=== PATIENT | female | born 1970 | race Caucasian/White ===

== ENCOUNTER 2017-10-25 18:45 | Observation (INO) | payer BC, OTHER ==
[~2017-10-25] VITALS: Ht 170.2 cm; Wt 126.4 kg
[~2017-10-25 18:45] MED LIST: BNT10 PO; CIPR-255 PO; LISI-726 PO; ONDA4TAB9 PO; OXYC-57 PO; RANITAB33 PO
[2017-10-25] MEDS ORDERED: ASPIRIN 81 MG CHEW PO STA (19:06)
[2017-10-25] MEDS ORDERED: NITROGLYCERIN 0.4 MG SL PER TAB CHARGE SL PRN ×2 (19:15→21:15)
[2017-10-25] MEDS ORDERED: DVN/160 PO (19:46)
[2017-10-25] MEDS ORDERED: HYDR25TA4 PO (19:46)
[2017-10-25 19:55] LABS: BASO % 0.3 %; BASO ABS # 0.03 K/uL (0-0.2); EOS % 3.3 %; HEMOGLOBIN 15.4 g/dL (12.0-16.0); IG# 0.02 K/uL (0.00-0.02); LYMPH % 41.3 %; LYMPH ABS # 3.77 K/uL (1.2-3.4); MEAN CELL VOLUME 87.4 fL (80-100); MEAN CORPUSCULAR HEMOGLOBIN 29.9 pg (25-34); MEAN CORPUSCULAR HGB CONC 34.2 g/dl (32-36); MEAN PLATELET VOLUME 10.3 fL (7.4-10.4); MONO % 7.7 %; NEUT % 47.2 %; NEUT ABS # 4.31 K/uL (1.4-6.5); PLATELET COUNT 323 K/uL (130-400); RED CELL DISTRIBUTION WIDTH CV 13.3 % (11.5-14.5); RED CELL DISTRIBUTION WIDTH SD 42.7 fL (36.4-46.3); WHITE BLOOD COUNT 9.13 K/uL (4.8-10.8)
[2017-10-25 20:14] LABS: BLOOD UREA NITROGEN 15 mg/dl (7-18); CALCIUM 9.5 mg/dl (8.5-10.1); CARBON DIOXIDE 27 mmol/L (21-32); CREATININE 0.93 mg/dl (0.60-1.20); GLUCOSE 103 mg/dl (70-99); POTASSIUM 3.4 mmol/L (3.5-5.1); SODIUM 138 mmol/L (136-145)
--- NOTE | 2017-10-25 20:14 | DIAGNOSTIC IMAGING REPORT ---
CHEST ONE VIEW PORTABLE HISTORY: Atypical Chest Pain COMPARISON: Chest 06/20/2015. FINDINGS: The lungs are clear. Cardiac silhouette is normal in size. No pleural effusions. No pneumothorax. There are low lung volumes, unchanged. IMPRESSION: No significant change compared to the prior study. No acute process. Electronically signed by: Wilfrido Medina M.D. 10/25/2017 8:13 PM Dictated Date/Time: 10/25/2017 8:12 PM
[2017-10-25 20:21] LABS: CKMB 3.1 ng/ml (0.5-3.6)
[2017-10-25 21:11] VITALS: O2SAT 95
[2017-10-25] MEDS ORDERED: RANI1TAB75 PO (21:23)
--- NOTE | 2017-10-25 21:27 | History and Physical ---
History & Physical Date & Time of Service: Oct 25, 2017 at 21:25 Chief Complaint: High Bp, Chest Pain Primary Care Physician: Talha Holley M.D. History of Present Illness Source: patient, clinic records, hospital records Patient is a 47-year-old female with a PMH of HTN, HLD and GERD who presents with intermittent chest pressure 5 days. Patient describes discomfort as a centrally located pressure that is nonradiating with associated diaphoresis and nausea. Chest pressure is made worse when she lies down and it is improved when she is sitting up or walking around. Pain is not made worse with exertion. No shortness of breath. Experiences pain for "a few seconds" and then it will resolve spontaneously. Did not take any medication at home over the weekend but was given 1 dose of sublingual nitroglycerin in the ED and chest pain has resolved. Three weeks ago, patient's lisinopril was discontinued due to cough and patient was started on 160mg of valsartan. Blood pressure has reportedly been elevated based on home readings with SBP up to 170. On Tuesday, patient endorsed right- sided headache with associated blurry vision, nausea and an episode of vomiting. Was started on hydrochlorothiazide 25 mg by PCP in addition to Valsartan and is no longer experiencing headache, nausea or vomiting. Denies any personal history of CA or DVT/PE. Did undergo a cardiac workup in 2016 for atypical chest pain and resulting dobutamine stress test was normal. Echo showed EF of 60-64% with some septal motion abnormality but otherwise normal. + family history of CA, with father passing away from heart disease by age 55. Does endorse recent personal stress over housing issues and work. Denies fever, chills, headache, lightheadedness, palpitations, SOB, abdominal pain, nausea, vomiting, bowel or bladder changes or LE swelling. Non-smoker. Past Medical/Surgical History Medical Problems: (1) Ankylosing spondylitis Status: Chronic (2) Bile leak, postoperative Status: Resolved (3) HLD (hyperlipidemia) Status: Chronic (4) HTN (hypertension) Status: Chronic Surgical Problems: (1) S/P cholecystectomy Status: Resolved Family History FHx: heart disease Social History Smoking Status: Never Smoker Alcohol Use: none Drug Use: none Marital Status: Housing status: lives with significant other Occupational Status: employed Immunizations History of Influenza Vaccine: Yes Influenza Vaccine Date: Jan 02, 2015 Allergies Coded Allergies: Cephalexin (Unverified Allergy, Unknown, UNKNOWN, 10/25/17) Oxytetracycline (Unverified Allergy, Unknown, UNKNOWN, 10/25/17) Polymyxin B (Unverified Allergy, Unknown, UNKNOWN, 10/25/17) Sulfa Antibiotics (Unverified Allergy, Unknown, UNKNOWN, 10/25/17) Morphine (Verified Adverse Reaction, Mild, rash, 10/25/17) Home Medications Scheduled Hydrochlorothiazide (Hctz), 25 MG PO DAILY Valsartan (Diovan), 160 MG PO DAILY Scheduled PRN Ranitidine HCl (Ranitidine 75), 1 TAB PO Q12 PRN for Dyspepsia Review of Systems Ten systems reviewed and negative except as noted in the HPI. Physical Exam Vital Signs Date Time Temp Pulse Resp B/P (MAP) Pulse Ox O2 Delivery O2 Flow Rate FiO2 10/25/17 21:11 83 16 130/85 95 Room Air 10/25/17 20:26 63 10/25/17 20:20 98 Room Air 10/25/17 19:45 69 16 125/86 96 Room Air 10/25/17 18:47 36.8 87 18 161/95 94 Room Air General Appearance: WD/WN, no apparent distress, + obese Head: normocephalic, atraumatic Eyes: normal inspection, PERRL, sclerae normal ENT: normal ENT inspection, hearing grossly normal, pharynx normal Neck: supple, thyroid normal, trachea midline Respiratory/Chest: chest non-tender, lungs clear, normal breath sounds, no respiratory distress, no accessory muscle use Cardiovascular: regular rate, rhythm, normal peripheral pulses Abdomen/GI: non tender, soft, no organomegaly Extremities/Musculoskelatal: normal inspection, no calf tenderness, no pedal edema 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, no motor/sensory deficits, alert, normal mood/affect, oriented x 3 Skin: normal color, warm/dry Diagnostics Laboratory Results Results Past 24 Hours Test 10/25/17 19:39 10/25/17 21:17 Range/Units White Blood Count 9.13 4.8-10.8 K/uL Red Blood Count 5.15 4.2-5.4 M/uL Hemoglobin 15.4 12.0-16.0 g/dL Hematocrit 45.0 37-47 % Mean Corpuscular Volume 87.4 80-100 fL Mean Corpuscular Hemoglobin 29.9 25-34 pg Mean Corpuscular Hemoglobin Concent 34.2 32-36 g/dl Platelet Count 323 130-400 K/uL Mean Platelet Volume 10.3 7.4-10.4 fL Neutrophils (%) (Auto) 47.2 % Lymphocytes (%) (Auto) 41.3 % Monocytes (%) (Auto) 7.7 % Eosinophils (%) (Auto) 3.3 % Basophils (%) (Auto) 0.3 % Neutrophils # (Auto) 4.31 1.4-6.5 K/uL Lymphocytes # (Auto) 3.77 1.2-3.4 K/uL Monocytes # (Auto) 0.70 0.11-0.59 K/uL Eosinophils # (Auto) 0.30 0-0.5 K/uL Basophils # (Auto) 0.03 0-0.2 K/uL RDW Standard Deviation 42.7 36.4-46.3 fL RDW Coefficient of Variation 13.3 11.5-14.5 % Immature Granulocyte % (Auto) 0.2 % Immature Granulocyte # (Auto) 0.02 0.00-0.02 K/uL Erythrocyte Sedimentation Rate 10 0-21 mm/hr D-Dimer < 190 0-500 ug/L FEU Sodium Level 138 136-145 mmol/L Potassium Level 3.4 3.5-5.1 mmol/L Chloride Level 101 98-107 mmol/L Carbon Dioxide Level 27 21-32 mmol/L Anion Gap 10.0 3-11 mmol/L Blood Urea Nitrogen 15 7-18 mg/dl Creatinine 0.93 0.60-1.20 mg/dl Est Creatinine Clear Calc Drug Dose 105.9 ml/min Estimated GFR () 86.0 Estimated GFR (Non- 74.2 BUN/Creatinine Ratio 16.5 10-20 Random Glucose 103 70-99 mg/dl Calcium Level 9.5 8.5-10.1 mg/dl Total Creatine Kinase 289 26-192 U/L Creatine Kinase MB 3.1 0.5-3.6 ng/ml Creatine Kinase MB Ratio 1.1 0-3.0 Troponin I < 0.015 0-0.045 ng/ml C-Reactive Protein < 0.29 0-0.29 mg/dl Chemistry Specimen Hemolysis Diagnostic Radiology CXR: IMPRESSION: No significant change compared to the prior study. No acute process. EKG Normal sinus rhythm. Cannot rule out Anterior infarct , age undetermined. T wave inversions noted in III and aVF. Impression Assessment and Plan Patient is a 47-year-old female with a PMH of HTN, HLD and GERD who presents with intermittent chest pressure 5 days. Chest pain -H/o atypical chest pain in 2016. Dobutamine stress test negative for inducible ischemia -R/o ACS; risk factors include HTN, HLD, + family history of heart disease -EKG with more pronounced T wave inversion in lead III, new in aVF -Initial troponin negative -CXR without acute abnormality -Trend serial cardiac enzymes -Considered PE but d-dimer is negative -Check echo -Repeat EKG in am -Lipid panel, a1c labs pending -Consult cardiology -NPO after midnight in case of stress test in AM HTN -BP initially 161/95 -Decreased to 130/85 with sublingual ntg -Continue home valsartan, hctz HLD -Currently not on medication -Fasting lipid panel pending Headache -- resolved -Endorses headache with elevated BP a few days ago -No longer experiencing pain -No focal neuro deficits on exam -Consider CT head if pain recurs, new symptoms H/o cholecystectomy, post-op bile leak -No current abdominal pain -LFTs pending H/o GERD -Zantac PRN H/o Ankylosing spondylitis -Remote history -Denies any current symptoms DVT Ppx: SCDs Code status: FULL PCP: Leydi Dispo: Observation telemetry. Plan to return home once medically stable. Patient seen in collaboration with Dr. Sabillon. Please see addendum. Attending Note: Patient is a 47 yr female with PMH of HTN, HLP, GERD, Obesity, Family H/O Heart disease presents with history of atypical chest pain. Patient states she is in lot of stress lately. Her blood pressure medication was changed from lisinopril to losartan and HCTZ was added 2 weeks ago by her PCP for better BP control and leg edema. Please review HPI for complete details. Initial Troponin is Negative. EKG showed T wave changes in inferior leads. Last stress test in 2016 was negative. On exam patient is obese, no distress, Normal breath sounds, CTA, 1+ B/L edema. Patient is admitted in Telemetry for chest pain R/O ACS. ESR and EKG not suggestive of pericarditis. LFTs normal. Chest pain could also secondary to stress or uncontrolled BP. Cardiology was consulted for possible stress test given positive family history and risk factors. I personally reviewed the record. Patient is interviewed and examined at bedside. Patient's care is coordinated with Taina Carr PA-C. Please refer to the documentation above for details of patient's presentation and for discussion of other issues. Resuscitation Status VTE Prophylaxis Will order VTE Prophylaxis: Yes
[2017-10-25] MEDS ORDERED: RANITIDINE HCL 150 MG TAB PO PRN (21:30)
[2017-10-25] MEDS ORDERED: IV FLUIDS COMPLETED PRN (21:30)
[2017-10-25 21:40] LABS: ALBUMIN 4.2 gm/dl (3.4-5.0); TOTAL PROTEIN 7.7 gm/dl (6.4-8.2)
[2017-10-25 22:05] VITALS: BP 159/92; PULSE 74; TEMP 36.7; O2SAT 97
[2017-10-25 22:23] VITALS: BP 159/92; PULSE 74; TEMP 36.7; Ht 170.2 cm; Wt 126.4 kg
[2017-10-25] MEDS ORDERED: POTASSIUM CHLORIDE 10 MEQ TABCR PO STA (22:36)
[2017-10-26] VITALS (11 sets, daily range): BP systolic 104–151; BP diastolic 63–93; PULSE 51–99; TEMP 36.5–36.9; O2SAT 93–95
--- NOTE | 2017-10-26 01:03 | EMERGENCY ROOM VISIT NOTE ---
History Report prepared by Alanna: Jacqueline Kaufman Under the Supervision of: Dr. Bobby Parkinson D.O. First contact with patient: 18:51 Chief Complaint: CARDIAC ASSESSMENT Stated Complaint: HIGH BP, CHEST PAIN History of Present Illness The patient is a 47 year old female who presents to the Emergency Room with complaints of persistent chest discomfort beginning 4 days ago. She describes the pain as a heaviness that worsens when laying down. The patient notes the pain waxes and wanes in intensity, but is always there. She reports feeling fatigued and some mild SOB, that worsens when she is active. She notes the SOB began when she switched BP medications 2 weeks ago. The patient states she was experiencing coughing while taking 20 mg Lisinopril daily, and was put on 160 mg Valsartan instead. She reports her BP has been persistently elevated since this switch. The patient denies arm pain, jaw pain, weakness, numbness, pain with urination, or headache. She also denies swelling of calves, recent weight gain, recent trips, history of immobilization or recent surgery, prior history of DVT, hemoptysis, history of malignancy, history of smoking, or control/ estrogen use. The patient notes a history of HTN and high cholesterol. She denies smoking or a history of heart disease. The patient sees Dr. Holley as her PCP. Source of History: patient Onset: 4 days ago Position: chest Quality: other (heaviness, waxing and waning) Timing: other (persistent) Modifying Factors (Worsening): other (laying down) Associated Symptoms: + SOB (mild), No headache, No urinary symptoms, No weakness, No numbness Note: Associated symptom: elevated BP. Denies: arm pain, jaw pain. Review of Systems See HPI for pertinent positives & negatives. A total of 10 systems reviewed and were otherwise negative. Past Medical & Surgical Medical Problems: (1) Ankylosing spondylitis (2) Bile leak, postoperative (3) HLD (hyperlipidemia) (4) HTN (hypertension) Surgical Problems: (1) S/P cholecystectomy Family History FHx: heart disease Social History Smoking Status: Never Smoker Alcohol Use: none Drug Use: none Marital Status: Housing Status: lives with family Occupation Status: employed Current/Historical Medications Scheduled Hydrochlorothiazide (Hctz), 25 MG PO DAILY Valsartan (Diovan), 160 MG PO DAILY Scheduled PRN Ranitidine HCl (Ranitidine 75), 1 TAB PO Q12 PRN for Dyspepsia Allergies Coded Allergies: Cephalexin (Unverified Allergy, Unknown, UNKNOWN, 10/25/17) Oxytetracycline (Unverified Allergy, Unknown, UNKNOWN, 10/25/17) Polymyxin B (Unverified Allergy, Unknown, UNKNOWN, 10/25/17) Sulfa Antibiotics (Unverified Allergy, Unknown, UNKNOWN, 10/25/17) Morphine (Verified Adverse Reaction, Mild, rash, 10/25/17) Physical Exam Vital Signs Date Time Temp Pulse Resp B/P (MAP) Pulse Ox O2 Delivery O2 Flow Rate FiO2 10/25/17 21:11 83 16 130/85 95 Room Air 10/25/17 20:26 63 10/25/17 20:20 98 Room Air 10/25/17 19:45 69 16 125/86 96 Room Air 10/25/17 18:47 36.8 87 18 161/95 94 Room Air Physical Exam GENERAL: Sitting up in bed, alert, well appearing, well nourished, no distress, non-toxic, obese EYE EXAM: normal conjunctiva. OROPHARYNX: no exudate, no erythema, lips, buccal mucosa, and tongue normal and mucous membranes are moist NECK: supple, no nuchal rigidity, no adenopathy, non-tender LUNGS: Clear to auscultation. Normal chest wall mechanics HEART: no murmurs, S1 normal and S2 normal ABDOMEN: abdomen soft, non-tender, normo-active bowel sounds, no masses, no rebound or guarding. BACK: Back is symmetrical on inspection and there is no deformity, no midline tenderness, no CVA tenderness. SKIN: no rashes and no bruising UPPER EXTREMITIES: upper extremities are grossly normal. radial pulses equal bilaterally LOWER EXTREMITIES: No pitting edema. Calves are equal bilaterally NEURO EXAM: Normal sensorium, cranial nerves II-XII grossly intact, normal speech, no gross weakness of arms, no gross weakness of legs. Medical Decision & Procedures ER Provider Diagnostic Interpretation: Radiology results as stated below per my review and the radiologist's interpretation: CHEST ONE VIEW PORTABLE HISTORY: Atypical Chest Pain COMPARISON: Chest 06/20/2015. FINDINGS: The lungs are clear. Cardiac silhouette is normal in size. No pleural effusions. No pneumothorax. There are low lung volumes, unchanged. IMPRESSION: No significant change compared to the prior study. No acute process. Electronically signed by: Wilfrido Medina M.D. 10/25/2017 8:13 PM Dictated Date/Time: 10/25/2017 8:12 PM Laboratory Results 10/25/17 19:39 Red Blood Count 5.15, Mean Corpuscular Volume 87.4, Mean Corpuscular Hemoglobin 29.9, Mean Corpuscular Hemoglobin Concent 34.2, Mean Platelet Volume 10.3, Neutrophils (%) (Auto) 47.2, Lymphocytes (%) (Auto) 41.3, Monocytes (%) (Auto) 7.7, Eosinophils (%) (Auto) 3.3, Basophils (%) (Auto) 0.3, Neutrophils # (Auto) 4.31, Lymphocytes # (Auto) 3.77, Monocytes # (Auto) 0.70, Eosinophils # (Auto) 0.30, Basophils # (Auto) 0.03 10/25/17 19:39 Test 10/25/17 19:39 White Blood Count 9.13 K/uL (4.8-10.8) Red Blood Count 5.15 M/uL (4.2-5.4) Hemoglobin 15.4 g/dL (12.0-16.0) Hematocrit 45.0 % (37-47) Mean Corpuscular Volume 87.4 fL (80-100) Mean Corpuscular Hemoglobin 29.9 pg (25-34) Mean Corpuscular Hemoglobin Concent 34.2 g/dl (32-36) Platelet Count 323 K/uL (130-400) Mean Platelet Volume 10.3 fL (7.4-10.4) Neutrophils (%) (Auto) 47.2 % Lymphocytes (%) (Auto) 41.3 % Monocytes (%) (Auto) 7.7 % Eosinophils (%) (Auto) 3.3 % Basophils (%) (Auto) 0.3 % Neutrophils # (Auto) 4.31 K/uL (1.4-6.5) Lymphocytes # (Auto) 3.77 K/uL (1.2-3.4) Monocytes # (Auto) 0.70 K/uL (0.11-0.59) Eosinophils # (Auto) 0.30 K/uL (0-0.5) Basophils # (Auto) 0.03 K/uL (0-0.2) RDW Standard Deviation 42.7 fL (36.4-46.3) RDW Coefficient of Variation 13.3 % (11.5-14.5) Immature Granulocyte % (Auto) 0.2 % Immature Granulocyte # (Auto) 0.02 K/uL (0.00-0.02) Erythrocyte Sedimentation Rate 10 mm/hr (0-21) D-Dimer < 190 ug/L FEU (0-500) Anion Gap 10.0 mmol/L (3-11) Est Creatinine Clear Calc Drug Dose 105.9 ml/min Estimated GFR () 86.0 Estimated GFR (Non- 74.2 BUN/Creatinine Ratio 16.5 (10-20) Calcium Level 9.5 mg/dl (8.5-10.1) Magnesium Level 2.1 mg/dl (1.8-2.4) Total Bilirubin 0.6 mg/dl (0.2-1) Direct Bilirubin 0.1 mg/dl (0-0.2) Aspartate Amino Transf (AST/SGOT) 25 U/L (15-37) Alanine Aminotransferase (ALT/SGPT) 35 U/L (12-78) Alkaline Phosphatase 85 U/L (45-117) Total Creatine Kinase 289 U/L (26-192) Creatine Kinase MB 3.1 ng/ml (0.5-3.6) Creatine Kinase MB Ratio 1.1 (0-3.0) Troponin I < 0.015 ng/ml (0-0.045) C-Reactive Protein < 0.29 mg/dl (0-0.29) Total Protein 7.7 gm/dl (6.4-8.2) Albumin 4.2 gm/dl (3.4-5.0) Chemistry Specimen Hemolysis Medications Administered Medications (Trade) Dose Ordered Sig/Neeta Route Start Time Stop Time Status Last Admin Dose Admin Aspirin (Aspirin Chew) 324 mg NOW STAT PO 10/25/17 19:06 10/25/17 19:07 DC 10/25/17 19:48 324 MG ECG Per My Interpretation Indication: chest pain Rate (beats per minute): 72 Rhythm: normal sinus Findings: T-wave inversion (Inferior), other (normal axis. T-wave flattening in anterior lateral) Comparison ECG Date: 06/20/15 Change: When compared to 06/20/15: T-wave inversion and T-wave flattening are new. ED Course ED COURSE: Vital signs were reviewed and showed situational hypertension. The patients medical record was reviewed The above diagnostic studies were performed and reviewed. ED treatments and interventions as stated above. 1857: The patient was evaluated in room B7. A complete history and physical examination was performed. 1905: Ordered Aspirin 324 mg PO. 2025: Upon reevaluation, the patient refused nitroglycerin and noted she is only experiencing chest pain on exertion, not constantly as originally stated. I discussed my findings with the patient and she understands and agrees with the treatment plan. 2028: I reviewed the patient's case with Taina Carr PA-C, [facility] hospitalist. She will evaluate the patient for further management. Based on the patients age, coexisting illnesses, exam and lab findings the decision to treat as an inpatient was made. The patient remained stable while under my care. The patient will be evaluated for further management. Medical Decision Differential diagnoses includes but is not limited to acute coronary syndrome, myocardial infarction, pericarditis, pulmonary embolus, aortic dissection, pneumonia, pneumothorax, musculoskeletal, shingles, esophageal. Patient is a 47-year-old female with a family history of heart disease, personal history of hypertension and high cholesterol who presents the ER for exertional chest pain and some shortness of breath. No other exacerbating or remitting factors. EKG shows T-wave flattening in the lateral leads with new flipped T waves in the inferior. CBC along with BMP and troponin was negative. No chest pain while in the ER. She was given aspirin. D-dimer was negative. Chest x-ray unremarkable. With the subtle T-wave changes did discuss with internal medicine for observation for cardiac rule out. Medication Reconcilliation Current Medication List: was personally reviewed by me Blood Pressure Screening Patient's blood pressure: Elevated blood pressure Blood pressure disposition: Elevated BP felt to be situational Consults Time Called: 2025 Consulting Physician: Taina Carr PA-C, [facility] hospitalist Returned Call: 2028 I reviewed the patient's case with Taina Carr PA-C, [facility] hospitalist. She will evaluate the patient for further management. Impression Primary Impression: Precordial chest pain Additional Impression: Acute electrocardiogram changes Scribe Attestation The scribe's documentation has been prepared under my direction and personally reviewed by me in its entirety. I confirm that the note above accurately reflects all work, treatment, procedures, and medical decision making performed by me. Departure Information Dispostion Being Evaluated By Hospitalist Referrals Talha Holley M.D. (PCP) Patient Instructions My [facility] Problem Qualifiers
[2017-10-26 07:31] LABS: HEMATOCRIT 42.8 % (37-47); HEMOGLOBIN 14.6 g/dL (12.0-16.0); MEAN CELL VOLUME 87.7 fL (80-100); MEAN CORPUSCULAR HEMOGLOBIN 29.9 pg (25-34); MEAN CORPUSCULAR HGB CONC 34.1 g/dl (32-36); MEAN PLATELET VOLUME 9.8 fL (7.4-10.4); PLATELET COUNT 277 K/uL (130-400); RED CELL DISTRIBUTION WIDTH CV 13.2 % (11.5-14.5); RED CELL DISTRIBUTION WIDTH SD 42.6 fL (36.4-46.3); WHITE BLOOD COUNT 7.07 K/uL (4.8-10.8)
[2017-10-26] MEDS ORDERED: NURSING VERBAL MED ORDER ONE (07:45)
[2017-10-26] MEDS ORDERED: ACETAMINOPHEN 500 MG TAB PO PRN (08:00)
[2017-10-26 08:13] LABS: CALCIUM 8.5 mg/dl (8.5-10.1); CREATININE 0.83 mg/dl (0.60-1.20); POTASSIUM 3.5 mmol/L (3.5-5.1)
[2017-10-26] MEDS ORDERED: VALSARTAN 80 MG TAB PO SCH (09:00)
[2017-10-26] MEDS ORDERED: ASPIRIN 81 MG ECTAB PO SCH (09:00)
[2017-10-26] MEDS ORDERED: HYDROCHLOROTHIAZIDE 25 MG TAB PO SCH (09:00)
[2017-10-26] MEDS ORDERED: PERFLUTREN LIPID MICROSPHERE (DEFINITY) IV ONE (09:06)
[2017-10-26] MEDS ORDERED: ATORVASTATIN 40 MG TAB PO ONE (09:39)
--- NOTE | 2017-10-26 11:39 | CARDIOLOGY CONSULTATION ---
DATE OF CONSULTATION: 10/26/2017 REASON FOR CONSULTATION: Chest pain, abnormal ECG. HISTORY OF PRESENT ILLNESS: Ms. Ewing is a 47-year-old female who presented to the Emergency Department with waxing and waning chest pain over four-day period. Her initial ECG demonstrates sinus rhythm with inferior T-wave abnormality as well as a non-specific T-wave abnormality in lateral leads. She describes chest heaviness and tightness, which occurs at rest and seems to be worse with position. She does not exercise regularly. She is overweight. For her work in general she walks regularly; however, denies any exertional complaints. Symptoms began approximately four days ago. Her cardiac enzymes are not significantly elevated and are undetectable at this time. Her resting 2D transthoracic echocardiogram demonstrates an anterior septal wall motion abnormality, which was not noted on prior studies. Currently, she is pain free. Denies orthopnea or PND. Intermittent edema is noted. Offers no other complaints at this time. REVIEW OF SYSTEMS: The pertinent positive noted above. Comprehensive 10-system review is otherwise negative. PAST MEDICAL HISTORY: Hypertension. PAST SURGICAL HISTORY: 1. Hysterectomy. 2. Cholecystectomy. SOCIAL HISTORY: Lifelong nonsmoker. She works for a [employer], which cares for disabled people. FAMILY HISTORY: Father with coronary disease in his early 40s. Father at age 55 from myocardial infarction. ALLERGIES: CEPHALEXIN, MORPHINE, OXYTETRACYCLINE, POLYMYXIN B, SULFA ANTIBIOTICS. OUTPATIENT MEDICATIONS: 1. Hydrochlorothiazide 25 mg daily. 2. Valsartan 160 mg daily. 3. Ranitidine 75 mg twice daily as needed. LABORATORY DATA: Troponins are negative x3 sets. White blood cell count is 7.07, hemoglobin is 14.6, platelet count is 277. D-dimer is less than 190. Triglycerides 175, total cholesterol 288, her LDL is 214, HDL is 39, TSH 1.890. Sed rate is 10, which is within normal limits. Chest x-ray on admission demonstrates no evidence of pulmonary edema. PHYSICAL EXAMINATION: VITAL SIGNS: Temperature is 36.7 degrees centigrade, pulse is 75 beats per minute and regular, respiratory rate 20 breaths per minute, blood pressure 122/80, SaO2 is 95% on room air. GENERAL: NAD, awake, alert and oriented x3. HEENT: Her mucous membranes are moist. No scleral icterus. Conjunctivae pink. NECK: Supple without JVD or HJR. No carotid bruit. HEART: Regular with normal S1, S2. There is no murmur, rub or gallop. LUNGS: Clear without rales, rhonchi or wheeze. ABDOMEN: Soft, nontender, obese. No rebound or guarding. Normal bowel sounds. EXTREMITIES: Warm and dry without clubbing, cyanosis or edema. The posterior tibial pulses are 2/4 bilaterally. NEUROLOGIC: Demonstrates no focal deficit. FINAL IMPRESSION: 1. A 47-year-old female with family history of premature coronary artery disease and marked dyslipidemia, likely familial dyslipidemia as noted above. She presents with intermittent waxing and waning chest tightness, which is somewhat atypical for angina with transient T-wave abnormality on ECG. Resting 2D transthoracic echocardiogram demonstrates a new anteroseptal wall motion abnormality. Findings are concerning for unstable angina/possible ACS. 2. Hypertension - borderline control. 3. Dyslipidemia - untreated. 4. Family history of premature coronary artery disease. PLAN AND RECOMMENDATIONS: I had a long discussion with the patient regarding her abnormal echocardiographic findings in conjunction with her risk factors and family history noted above. We discussed further ischemic evaluation with non-invasive stress test versus invasive cardiac catheterization with coronary angiography. The risks, benefits and alternatives to cardiac catheterization were discussed at length. The patient is agreeable. Continue aspirin at this time. Statin therapy will be added, atorvastatin 80 mg daily. Further recommendations pending result of catheterization. Thank you for allowing me to participate in the care of your patient. MIKE
--- NOTE | 2017-10-26 12:48 | Progress Note ---
Internal Med Progress Note Date of Service: Oct 26, 2017. Provider Documentation: SUBJECTIVE: The patient was seen and examined in telemetry unit She is 47-year-old white female morbidly obese with history of uncontrolled hypertension , high cholesterol and a strong family history of heart disease Was admitted yesterday with them chest pressure/pain with and without exertion She feels a lot better today and she has been ruled out for ACS She will have cardiac cath today for better understanding of her coronaries OBJECTIVE: Vital Signs-as noted below Exam: General-no apparent distress at rest Eyes-normal ENT-normal Neck-supple Lungs-clear to auscultate bilaterally Heart-regular Abdomen-benign Extremities-trace edema bilaterally Neuro-alert, awake and oriented 3 No focal neuro deficit Lab data as noted below. ASSESSMENT & PLAN: Patient is a 47-year-old female with a PMH of HTN, HLD and GERD who presents with intermittent chest pressure 5 days. Atypical chest pain/angina equivalent -H/o atypical chest pain in 2016. Dobutamine stress test negative for inducible ischemia -R/o ACS; risk factors include HTN, HLD, + family history of heart disease -Initial and serial troponins were negative and without any significant EKG abnormality -CXR without acute abnormality -Doubt any PE as d-dimer is negative -Lipid panel-high cholesterol of 288 -Consult cardiology-appreciate input -Going to cardiac cath today;;MILD NON-OBSTRUCTIVE CORONARIES Discussed with the mining analyst Discharge home today HTN -BP initially 161/95 -Decreased to 130/85 with sublingual ntg -Continue home valsartan, hctz -Blood pressure seems to be controlled HLD -Currently not on medication -Fasting lipid panel pending-has high cholesterol -We will put her on Lipitor Headache -- resolved -Endorses headache with elevated BP a few days ago -No longer experiencing pain -No focal neuro deficits on exam -Consider CT head if pain recurs, new symptoms H/o cholecystectomy, post-op bile leak -No current abdominal pain -LFTs pending H/o GERD -Zantac PRN H/o Ankylosing spondylitis -Remote history -Denies any current symptoms Morbid obesity Advised to reduce weight DVT Ppx: SCDs Code status: FULL PCP: Leydi Dispo: Observation telemetry. Plan to return home once medically stable. Discharge after cardiac cath if negative and no intervention is undertaken Vital Signs: Date Time Temp Pulse Resp B/P (MAP) Pulse Ox O2 Delivery O2 Flow Rate FiO2 10/26/17 14:15 36.9 65 20 128/81 (97) 94 Room Air 10/26/17 13:55 18 103/81 (88) 99 Room Air 10/26/17 13:50 16 124/77 (93) 99 Room Air 10/26/17 13:45 16 121/75 (90) 98 Room Air 10/26/17 12:09 36.6 78 18 136/91 (106) 93 Room Air 10/26/17 08:00 Room Air 10/26/17 07:00 36.7 99 20 122/80 (94) 95 Room Air 10/26/17 04:24 36.5 51 18 104/63 (77) 93 Room Air 10/25/17 23:30 Room Air 10/25/17 22:23 36.7 74 18 159/92 Room Air 10/25/17 22:05 36.7 74 18 159/92 (114) 97 Room Air 10/25/17 21:11 83 16 130/85 95 Room Air 10/25/17 20:26 63 10/25/17 20:20 98 Room Air 10/25/17 19:45 69 16 125/86 96 Room Air 10/25/17 18:47 36.8 87 18 161/95 94 Room Air Lab Results: Results Past 24 Hours Test 10/25/17 19:39 10/26/17 01:49 10/26/17 07:22 10/26/17 12:25 Range/Units White Blood Count 9.13 7.07 4.8-10.8 K/uL Red Blood Count 5.15 4.88 4.2-5.4 M/uL Hemoglobin 15.4 14.6 12.0-16.0 g/dL Hematocrit 45.0 42.8 37-47 % Mean Corpuscular Volume 87.4 87.7 80-100 fL Mean Corpuscular Hemoglobin 29.9 29.9 25-34 pg Mean Corpuscular Hemoglobin Concent 34.2 34.1 32-36 g/dl Platelet Count 323 277 130-400 K/uL Mean Platelet Volume 10.3 9.8 7.4-10.4 fL Neutrophils (%) (Auto) 47.2 % Lymphocytes (%) (Auto) 41.3 % Monocytes (%) (Auto) 7.7 % Eosinophils (%) (Auto) 3.3 % Basophils (%) (Auto) 0.3 % Neutrophils # (Auto) 4.31 1.4-6.5 K/uL Lymphocytes # (Auto) 3.77 1.2-3.4 K/uL Monocytes # (Auto) 0.70 0.11-0.59 K/uL Eosinophils # (Auto) 0.30 0-0.5 K/uL Basophils # (Auto) 0.03 0-0.2 K/uL RDW Standard Deviation 42.7 42.6 36.4-46.3 fL RDW Coefficient of Variation 13.3 13.2 11.5-14.5 % Immature Granulocyte % (Auto) 0.2 % Immature Granulocyte # (Auto) 0.02 0.00-0.02 K/uL Erythrocyte Sedimentation Rate 10 0-21 mm/hr D-Dimer < 190 0-500 ug/L FEU Sodium Level 138 139 136-145 mmol/L Potassium Level 3.4 3.5 3.5-5.1 mmol/L Chloride Level 101 105 98-107 mmol/L Carbon Dioxide Level 27 26 21-32 mmol/L Anion Gap 10.0 8.0 3-11 mmol/L Blood Urea Nitrogen 15 14 7-18 mg/dl Creatinine 0.93 0.83 0.60-1.20 mg/dl Est Creatinine Clear Calc Drug Dose 105.9 118.3 ml/min Estimated GFR () 86.0 98.7 Estimated GFR (Non- 74.2 85.2 BUN/Creatinine Ratio 16.5 16.8 10-20 Random Glucose 103 114 70-99 mg/dl Calcium Level 9.5 8.5 8.5-10.1 mg/dl Magnesium Level 2.1 1.8-2.4 mg/dl Total Bilirubin 0.6 0.2-1 mg/dl Direct Bilirubin 0.1 0-0.2 mg/dl Aspartate Amino Transf (AST/SGOT) 25 15-37 U/L Alanine Aminotransferase (ALT/SGPT) 35 12-78 U/L Alkaline Phosphatase 85 45-117 U/L Total Creatine Kinase 289 26-192 U/L Creatine Kinase MB 3.1 0.5-3.6 ng/ml Creatine Kinase MB Ratio 1.1 0-3.0 Troponin I < 0.015 < 0.015 < 0.015 0-0.045 ng/ml C-Reactive Protein < 0.29 0-0.29 mg/dl Total Protein 7.7 6.4-8.2 gm/dl Albumin 4.2 3.4-5.0 gm/dl Chemistry Specimen Hemolysis Estimated Average Glucose 126 mg/dl Hemoglobin A1c 6.0 4.5-5.6 % Triglycerides Level 175 0-150 mg/dl Cholesterol Level 288 0-200 mg/dl HDL Cholesterol 39 mg/dl LDL Cholesterol, Calculated 214 mg/dl VLDL Cholesterol, Calculated 35 mg/dl Cholesterol/HDL Ratio 7.4 Thyroid Stimulating Hormone (TSH) 1.890 0.300-4.500 uIu/ml Free Thyroxine 0.99 0.80-1.60 ng/dl Urine Test NEG NEG
[2017-10-26] MEDS ORDERED: MIDAZOLAM HCL 1 MG/ML 2ML VIAL ONE (13:08)
[2017-10-26] MEDS ORDERED: FENTANYL CITRATE INJ 50 MCG/1 ML 2 ML VIAL ONE (13:08)
[2017-10-26] MEDS ORDERED: NiCARDipine HCL INJ 2.5 MG/ML 10 ML AMP ONE (13:09)
[2017-10-26] MEDS ORDERED: HEPARIN SOD (PORCINE) 1000 UNIT/ML 10 ML VIAL ONE (13:09)
[2017-10-26] MEDS ORDERED: NITROGLYCERIN/D5W 100MCG/ML 20ML SYR ONE (13:10)
[2017-10-26] MEDS ORDERED: ASPIRIN 81 MG CHEW ONE (13:14)
--- NOTE | 2017-10-26 13:17 | Pre Sedation Assessment ---
Pre Sedation Assessment General Date of Sedation: Oct 26, 2017. Vital Signs Past 12 Hours Date Time Temp Pulse Resp B/P (MAP) Pulse Ox O2 Delivery O2 Flow Rate FiO2 10/26/17 12:09 36.6 78 18 136/91 (106) 93 Room Air 10/26/17 08:00 Room Air 10/26/17 07:00 36.7 99 20 122/80 (94) 95 Room Air 10/26/17 04:24 36.5 51 18 104/63 (77) 93 Room Air Review Cardiovascular: regular rate, rhythm, no edema, no murmur Lungs: lungs clear, normal breath sounds Pre-Sedation Airway Assessment Smoking Status: Never Smoker Short Thick Neck: Yes Thyro-mental Distance: < or =3 Finger Breadths Oral Cavity: WNL Mallampati Classification: Class III ASA Classification: Class III NPO Status Date of Last Intake of Fluids: Oct 25, 2017 Time of Last Intake of Fluids: 2199 Date of Last Intake of Solids: Oct 25, 2017 Time of Last Intake of Solids: 2199 Procedure Planning Contraindications for Sedation: None Current Medications Reviewed: Yes Notes The planned sedation has been discussed with the patient. Informed Consent was obtained. I have identified the patient, determined the appropriateness of sedation and have assessed the patient immediately prior to the procedure. All medicine(s) and interventions are by my order.
--- NOTE | 2017-10-26 13:51 | Post Sedation Assessment ---
Post Sedation Assessment General Date of Sedation Oct 26, 2017. Vital Signs: Vital Signs Past 12 Hours Date Time Temp Pulse Resp B/P (MAP) Pulse Ox O2 Delivery O2 Flow Rate FiO2 10/26/17 12:09 36.6 78 18 136/91 (106) 93 Room Air 10/26/17 08:00 Room Air 10/26/17 07:00 36.7 99 20 122/80 (94) 95 Room Air 10/26/17 04:24 36.5 51 18 104/63 (77) 93 Room Air Post Procedure Recovery Score Activity: (2) Moves 4 extremities * Respiration: (2) Deep breath/cough Circulation: (2) +/-20% PreAnes Value Consciousness: (2) Fully Awake Oxygen Saturation: (2) > 92% On Room Air Post Anesthesia Score: 10 Discharge Sedation Level of Care: Fast Track Phase II Post Sedation Plan On clinical assessment, the patient appears to have tolerated the sedation without complications. Patient is recovering as anticipated. Patient will continue to be monitored by nursing and may be discharged when sedation discharge criteria are met per below protocol. Upon Completions of procedure and additional 15 minutes continue every 5 minute vital signs and the P.A.R. score; then discharge to a Phase I or Fast Track to Phase II per the following guidelines: * Discharge Patient to appropriate Phase II area if PAR is 8 or greater or return to pre- procedure baseline. The post - procedure orders will be as directed. * If PAR score is less than 8 or not return to pre-procedure baseline then patient will follow Phase I monitoring till PAR is reached for Phase II. The Phase I may be done in procedure room or may call to secure a Phase I area. * If naloxone or flumazenil are used for reversal, hold in Phase I for an additional 60 -120 minutes before discharge to Phase II. Please call the Sedation Physician to re-evaluate and complete post-note for discharge to Phase II area. Do NOT discharge from procedure sedation or Phase 1 until post- sedation evaluation note is complete by procedure /sedation MD Sedation Discharge Instructions to be given to the patient at discharge to home.
[2017-10-26] MEDS ORDERED: SODIUM CHLORIDE 0.9% 1000ML 250 ML IV PRN (14:03)
--- NOTE | 2017-10-26 14:03 | Cardiac Catheterization ---
Procedure Note Procedure Date Oct 26, 2017. Pre-Procedure Diagnosis Acute Coronary Syndrome AUC Score 8 Post-Procedure Diagnosis Mild CAD Procedure(s) Performed Coronary Angiography, Left Heart Cath Rubber Compounder Dr. Kim Route Sales Specialist(s) Jessica RTR Estimated Blood Loss 5cc Medication(s) Aspirin, Fentanyl, Heparin, Nicardipine, Nitroglycerin, Versed, Lidocaine 1% Summary of Findings Mild non-obstructive CAD Hemodynamics Rest Ao: 110/95/80 Final Ao: 129/102/77 LV: 122/-4/1 Recommendations Medical therapy and/or Counseling Specimens None Radiation Exposure (mGy) 1688 Contrast (mls) 60 Anesthesia Moderate sedation. Start 1323. End 1345. Sedation monitor Leonardo LEWIS Procedural Complication(s) None Disposition PCU ACC Data Cardiac Status Clinical evaluation leading to the procedure CAD Presntation: Unstable angina Anginal Classification: CCS III Heart Failure: No Cardiogenic Shock w/in 24Hrs: No Cardiac Arrest w/in 24Hrs: No Imaging studies past 6 months: Yes Stress studies past 6 months: No Coronary Anatomy Dominant: Right Left Main (% Stenosis): Normal LAD (% Stenosis): Proximal (20%) D1 (% Stenosis): Normal D2 (% Stenosis): Normal Circumflex (% Stenosis): Normal (small nondominant vessel) OM1 (% Stenosis): Normal RCA (% Stenosis): Normal R PDA (% Stenosis): Normal R PL1 (% Stenosis): Normal R PL2 (% Stenosis): Proximal (20%) Diagnostic Status: Elective Closure Device Percutaneous Entry Location: Radial Closure Device: Radial Band Recommendations: Medical therapy and/or Counseling Intraprocedure Events Significant Dissection: No Perforation: No
[2017-10-26] MEDS ORDERED: ONDANSETRON INJ 2 MG/ML 2 ML VIAL IV PRN (14:15)
[2017-10-26] MEDS ORDERED: ACETAMINOPHEN 325 MG TAB PO PRN (14:15)
[2017-10-26] MEDS ORDERED: ASPI-461 PO (14:35)
[2017-10-26] MEDS ORDERED: LPT40 PO (14:35)
--- NOTE | 2017-10-26 14:38 | Discharge Instructions ---
Discharge Instructions Date of Service Oct 26, 2017. 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 Discharge Goals Goal(s): Prevent Disease Progression Activity Recommendations Activity Limitations: per Instructions/Follow-up section . Instructions / Follow-Up Instructions / Follow-Up Dr Holley on 11/03/17 at 10:45.Please make an appointment with Cardiology in 1 month. Current Hospital Diet Patient's current hospital diet: AHA Diet (Heart Healthy) Discharge Diet Recommended Diet: AHA Diet (Heart Healthy) Pending Studies Studies pending at discharge: no Laboratory Results Hemoglobin A1c Test 10/26/17 07:22 Range/Units Estimated Average Glucose 126 mg/dl Hemoglobin A1c 6.0 H 4.5-5.6 % Lipid Panel Test 10/26/17 07:22 Range/Units Triglycerides Level 175 H 0-150 mg/dl Cholesterol Level 288 H 0-200 mg/dl HDL Cholesterol 39 mg/dl Cholesterol/HDL Ratio 7.4 LDL Cholesterol, Calculated 214 mg/dl Medical Emergencies . Who to Call and When: Medical Emergencies: If at any time you feel your situation is an emergency, please call 911 immediately. . Non-Emergent Contact Non-Emergency issues call your: Primary Care Provider . Past History Medical & Surgical History: (1) Precordial chest pain (2) HTN (hypertension) (3) HLD (hyperlipidemia) (4) Ankylosing spondylitis (5) Chest pain (6) S/P cholecystectomy . "Provider Documentation" section prepared by Chrissy Snow. . Unhairing Inspector Recommendations Unhairing Inspector Recommendations: No Strenuous activity for 5 days. No lifting more than 10 lbs for 3 days. Go back to work based on these criteria.
--- NOTE | 2017-10-26 17:07 | ECHOCARDIOGRAM REPORT ---
*NOTICE TO RECEIVING CONSTITUTION PARTY AGENCY This information is strictly Confidential and protected under [place] law. [place] law prohibits you from making any further disclosure of this information unless further disclosure is expressly permitted by the written consent of the person to whom it pertains or is authorized by law. A general authorization for the release of medical or other information is not sufficient for this purpose. Hospital accepts no responsibility if the information is made available to any other person, INCLUDING THE PATIENT. Interpretation Summary * Name: KARI MEDINA Study Date: 10/26/2017 07:45 AM BP: 122/80 mmHg * Patient Location: [facility]\S\N282\S\2 HR: 51 * : 1970 (M/d/yyyy) Gender: Female Height: 67 in * Age: 47 yrs Ethnicity: [place] Weight: 280 lb * Ordering Physician: Taina Carr * Referring Physician: Self, Referred * Performed By: Jayda Saavedra RDCS * * Reason For Study: CHEST PAIN * BSA: 2.3 m2 * The study was technically adequate. * There is no comparison study available. * -- Conclusions -- * Left ventricular systolic function is normal. * Ejection Fraction = 60-65%. * There is a focal area of hypokinesis involving the mid anterior septum visualized with administration of ultrasonic contrast. * Otherwise normal wall motion. * There is mild concentric left ventricular hypertrophy. * Diastolic dysfunction, Grade II (pseudonormalization pattern). * No significant valvular pathology. Procedure Details * A contrast injection of Definity was performed to improve assessment of LV function. * Contrast was injected into an intravenous site in the right arm. * One vial of Definity ultrasound contrast was diluted in normal saline to a total volume of 10 ml. A total of '4' ml of solution was administered during imaging. * Lot # [id number] of Definity utilized for procedure. * Expiration date OCT 06. * The attending nurse who injected the contrast agent was CARMENCITA BENAVIDES RN. * A complete two-dimensional transthoracic echocardiogram was performed (2D, M-mode, Doppler and color flow Doppler). Left Ventricle * The left ventricle is normal in size. * There is no thrombus. * There is mild concentric left ventricular hypertrophy. * Left ventricular systolic function is normal. * Ejection Fraction = 60-65%. * There is a focal area of hypokinesis involving the mid anterior septum visualized with administration of ultrasonic contrast. Otherwise normal wall motion. * The left ventricular wall motion is normal. Right Ventricle * The right ventricle is normal size. * The right ventricular systolic function is normal as assessed by tricuspid annular plane systolic excursion (TAPSE) (normal >1.5 cm). Atria * The left atrial size is normal. * Right atrial size is normal. * There is no evidence of atrial septal defect, but resolution does not allow assessment for a patent foramen ovale. Mitral Valve * There is mild mitral annular calcification. * There is no mitral valve stenosis. * Significant mitral regurgitation is absent. Tricuspid Valve * The tricuspid valve is normal. * There is no tricuspid stenosis. * Significant tricuspid regurgitation is absent. Aortic Valve * The aortic valve is trileaflet. * Aortic stenosis is absent. * There is no significant aortic regurgitation. Pulmonic Valve * The pulmonary valve is not well seen, but the Doppler examination is normal without significant regurgitation or stenosis. Great Vessels * The aortic root and proximal ascending aorta are normal sized. Pericardium/Pleural * There is no pericardial effusion. Great Vessels * Normal inferior vena cava diameter and respiratory variation suggests normal central venous pressure. Left Ventricular Diastolic Function * Diastolic dysfunction, Grade II (pseudonormalization pattern). MMode 2D Measurements and Calculations IVSd 1.2 cm IVSs 1.5 cm LVIDd 4.3 cm LVIDs 3.1 cm LVPWd 1.4 cm LVPWs 1.6 cm IVS/LVPW 0.88 FS 28.6 % EDV(Teich) 84.5 ml ESV(Teich) 37.8 ml EF(Teich) 55.3 % EDV(cubed) 81.3 ml ESV(cubed) 29.6 ml EF(cubed) 63.5 % % IVS thick 23.0 % % LVPW thick 19.0 % LV mass(C)d 209.4 grams LV mass(C)dI 89.8 grams/m\S\2 LV mass(C)s 177.1 grams LV mass(C)sI 75.9 grams/m\S\2 SV(Teich) 46.8 ml SI(Teich) 20.1 ml/m\S\2 SV(cubed) 51.7 ml SI(cubed) 22.2 ml/m\S\2 Ao root diam 3.0 cm Ao root area 6.9 cm\S\2 LA dimension 3.6 cm LA/Ao 1.2 LVAd ap4 32.3 cm\S\2 LVLd ap4 8.4 cm EDV(MOD-sp4) 105.9 ml EDV(sp4-el) 105.6 ml LVAs ap4 18.4 cm\S\2 LVLs ap4 6.9 cm ESV(MOD-sp4) 42.5 ml ESV(sp4-el) 41.5 ml EF(MOD-sp4) 59.9 % EF(sp4-el) 60.7 % LVAd ap2 25.0 cm\S\2 LVLd ap2 7.7 cm EDV(MOD-sp2) 68.9 ml EDV(sp2-el) 68.5 ml LVAs ap2 16.6 cm\S\2 LVLs ap2 7.1 cm ESV(MOD-sp2) 33.5 ml ESV(sp2-el) 32.9 ml EF(MOD-sp2) 51.4 % EF(sp2-el) 51.9 % LVLd %diff -8.72 % EDV(MOD-bp) 88.4 ml LVLs %diff 2.8 % ESV(MOD-bp) 38.2 ml EF(MOD-bp) 56.8 % SV(MOD-sp4) 63.4 ml SI(MOD-sp4) 27.2 ml/m\S\2 SV(MOD-sp2) 35.5 ml SI(MOD-sp2) 15.2 ml/m\S\2 SV(MOD-bp) 50.2 ml SI(MOD-bp) 21.5 ml/m\S\2 SV(sp4-el) 64.1 ml SI(sp4-el) 27.5 ml/m\S\2 SV(sp2-el) 35.6 ml SI(sp2-el) 15.2 ml/m\S\2 Doppler Measurements and Calculations MV E max brent 78.1 cm/sec MV A max brent 65.5 cm/sec MV E/A 1.2 MV dec time 0.22 sec Ao V2 max 136.8 cm/sec Ao max PG 7.5 mmHg Ao max PG (full) 3.1 mmHg LV V1 max PG 4.4 mmHg LV V1 max 104.3 cm/sec
--- NOTE | 2017-10-27 08:10 | Discharge Summary ---
Discharge Summary Date of Service Oct 27, 2017. 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 Secondary Diagnoses/Problems: Please see H&P and Hospital Progress note Procedures: Cardiac Cath Consultations: Cardiology Medication Reconciliation New Medications: Aspirin (Aspirin) 81 Mg Tab 81 MG PO QAM for 30 Days, #30 TAB Atorvastatin (Lipitor) 40 Mg Tab 80 MG PO QAM for 30 Days, #60 TAB Continued Medications: Hydrochlorothiazide (Hctz) 25 Mg Tab 25 MG PO DAILY, TAB Ranitidine HCl (Ranitidine 75) 75 Mg Tab 1 TAB PO Q12 PRN for Dyspepsia Valsartan (Diovan) 160 Mg Tab 160 MG PO DAILY, TAB Admission Information HPI (per Admitting provider): Patient is a 47-year-old female with a PMH of HTN, HLD and GERD who presents with intermittent chest pressure 5 days. Patient describes discomfort as a centrally located pressure that is nonradiating with associated diaphoresis and nausea. Chest pressure is made worse when she lies down and it is improved when she is sitting up or walking around. Pain is not made worse with exertion. No shortness of breath. Experiences pain for "a few seconds" and then it will resolve spontaneously. Did not take any medication at home over the weekend but was given 1 dose of sublingual nitroglycerin in the ED and chest pain has resolved. Three weeks ago, patient's lisinopril was discontinued due to cough and patient was started on 160mg of valsartan. Blood pressure has reportedly been elevated based on home readings with SBP up to 170. On Tuesday, patient endorsed right- sided headache with associated blurry vision, nausea and an episode of vomiting. Was started on hydrochlorothiazide 25 mg by PCP in addition to Valsartan and is no longer experiencing headache, nausea or vomiting. Denies any personal history of NE or DVT/PE. Did undergo a cardiac workup in 2016 for atypical chest pain and resulting dobutamine stress test was normal. Echo showed EF of 60-64% with some septal motion abnormality but otherwise normal. + family history of NE, with father passing away from heart disease by age 55. Does endorse recent personal stress over housing issues and work. Denies fever, chills, headache, lightheadedness, palpitations, SOB, abdominal pain, nausea, vomiting, bowel or bladder changes or LE swelling. Non-smoker. Past Medical/Surgical History Medical Problems: (1) Ankylosing spondylitis Status: Chronic (2) Bile leak, postoperative Status: Resolved (3) HLD (hyperlipidemia) Status: Chronic (4) HTN (hypertension) Status: Chronic Surgical Problems: (1) S/P cholecystectomy Status: Resolved Family History FHx: heart disease Social History Smoking Status: Never Smoker Alcohol Use: none Drug Use: none Marital Status: Housing status: lives with significant other Occupational Status: employed Immunizations History of Influenza Vaccine: Yes Influenza Vaccine Date: Jan 02, 2015 Allergies Coded Allergies: Cephalexin (Unverified Allergy, Unknown, UNKNOWN, 10/25/17) Oxytetracycline (Unverified Allergy, Unknown, UNKNOWN, 10/25/17) Polymyxin B (Unverified Allergy, Unknown, UNKNOWN, 10/25/17) Sulfa Antibiotics (Unverified Allergy, Unknown, UNKNOWN, 10/25/17) Morphine (Verified Adverse Reaction, Mild, rash, 10/25/17) Home Medications Scheduled Hydrochlorothiazide (Hctz), 25 MG PO DAILY Valsartan (Diovan), 160 MG PO DAILY Scheduled PRN Ranitidine HCl (Ranitidine 75), 1 TAB PO Q12 PRN for Dyspepsia Review of Systems Ten systems reviewed and negative except as noted in the HPI. Physical Exam Vital Signs Date Time Temp Pulse Resp B/P (MAP) Pulse Ox O2 Delivery O2 Flow Rate FiO2 10/25/17 21:11 83 16 130/85 95 Room Air 10/25/17 20:26 63 10/25/17 20:20 98 Room Air 10/25/17 19:45 69 16 125/86 96 Room Air 10/25/17 18:47 36.8 87 18 161/95 94 Room Air General Appearance: WD/WN, no apparent distress, + obese Head: normocephalic, atraumatic Eyes: normal inspection, PERRL, sclerae normal ENT: normal ENT inspection, hearing grossly normal, pharynx normal Neck: supple, thyroid normal, trachea midline Respiratory/Chest: chest non-tender, lungs clear, normal breath sounds, no respiratory distress, no accessory muscle use Cardiovascular: regular rate, rhythm, normal peripheral pulses Abdomen/GI: non tender, soft, no organomegaly Extremities/Musculoskelatal: normal inspection, no calf tenderness, no pedal edema Neurologic/Psych: supervisor calibration II-XII nml as tested, no motor/sensory deficits, alert, normal mood/affect, oriented x 3 Skin: normal color, warm/dry Diagnostics Laboratory Results Results Past 24 Hours Test 10/25/17 19:39 10/25/17 21:17 Range/Units White Blood Count 9.13 4.8-10.8 K/uL Red Blood Count 5.15 4.2-5.4 M/uL Hemoglobin 15.4 12.0-16.0 g/dL Hematocrit 45.0 37-47 % Mean Corpuscular Volume 87.4 80-100 fL Mean Corpuscular Hemoglobin 29.9 25-34 pg Mean Corpuscular Hemoglobin Concent 34.2 32-36 g/dl Platelet Count 323 130-400 K/uL Mean Platelet Volume 10.3 7.4-10.4 fL Neutrophils (%) (Auto) 47.2 % Lymphocytes (%) (Auto) 41.3 % Monocytes (%) (Auto) 7.7 % Eosinophils (%) (Auto) 3.3 % Basophils (%) (Auto) 0.3 % Neutrophils # (Auto) 4.31 1.4-6.5 K/uL Lymphocytes # (Auto) 3.77 1.2-3.4 K/uL Monocytes # (Auto) 0.70 0.11-0.59 K/uL Eosinophils # (Auto) 0.30 0-0.5 K/uL Basophils # (Auto) 0.03 0-0.2 K/uL RDW Standard Deviation 42.7 36.4-46.3 fL RDW Coefficient of Variation 13.3 11.5-14.5 % Immature Granulocyte % (Auto) 0.2 % Immature Granulocyte # (Auto) 0.02 0.00-0.02 K/uL Erythrocyte Sedimentation Rate 10 0-21 mm/hr D-Dimer < 190 0-500 ug/L FEU Sodium Level 138 136-145 mmol/L Potassium Level 3.4 3.5-5.1 mmol/L Chloride Level 101 98-107 mmol/L Carbon Dioxide Level 27 21-32 mmol/L Anion Gap 10.0 3-11 mmol/L Blood Urea Nitrogen 15 7-18 mg/dl Creatinine 0.93 0.60-1.20 mg/dl Est Creatinine Clear Calc Drug Dose 105.9 ml/min Estimated GFR () 86.0 Estimated GFR (Non- 74.2 BUN/Creatinine Ratio 16.5 10-20 Random Glucose 103 70-99 mg/dl Calcium Level 9.5 8.5-10.1 mg/dl Total Creatine Kinase 289 26-192 U/L Creatine Kinase MB 3.1 0.5-3.6 ng/ml Creatine Kinase MB Ratio 1.1 0-3.0 Troponin I < 0.015 0-0.045 ng/ml C-Reactive Protein < 0.29 0-0.29 mg/dl Chemistry Specimen Hemolysis Diagnostic Radiology CXR: IMPRESSION: No significant change compared to the prior study. No acute process. EKG Normal sinus rhythm. Cannot rule out Anterior infarct , age undetermined. T wave inversions noted in III and aVF. Impression Assessment and Plan Patient is a 47-year-old female with a PMH of HTN, HLD and GERD who presents with intermittent chest pressure 5 days. Chest pain -H/o atypical chest pain in 2016. Dobutamine stress test negative for inducible ischemia -R/o ACS; risk factors include HTN, HLD, + family history of heart disease -EKG with more pronounced T wave inversion in lead III, new in aVF -Initial troponin negative -CXR without acute abnormality -Trend serial cardiac enzymes -Considered PE but d-dimer is negative -Check echo -Repeat EKG in am -Lipid panel, a1c labs pending -Consult cardiology -NPO after midnight in case of stress test in AM HTN -BP initially 161/95 -Decreased to 130/85 with sublingual ntg -Continue home valsartan, hctz HLD -Currently not on medication -Fasting lipid panel pending Headache -- resolved -Endorses headache with elevated BP a few days ago -No longer experiencing pain -No focal neuro deficits on exam -Consider CT head if pain recurs, new symptoms H/o cholecystectomy, post-op bile leak -No current abdominal pain -LFTs pending H/o GERD -Zantac PRN H/o Ankylosing spondylitis -Remote history -Denies any current symptoms DVT Ppx: SCDs Code status: FULL PCP: Leydi Dispo: Observation telemetry. Plan to return home once medically stable. Patient seen in collaboration with Dr. Sabillon. Please see addendum. Attending Note: Patient is a 47 yr female with PMH of HTN, HLP, GERD, Obesity, Family H/O Heart disease presents with history of atypical chest pain. Patient states she is in lot of stress lately. Her blood pressure medication was changed from lisinopril to losartan and HCTZ was added 2 weeks ago by her PCP for better BP control and leg edema. Please review HPI for complete details. Initial Troponin is Negative. EKG showed T wave changes in inferior leads. Last stress test in 2016 was negative. On exam patient is obese, no distress, Normal breath sounds, CTA, 1+ B/L edema. Patient is admitted in Telemetry for chest pain R/O ACS. ESR and EKG not suggestive of pericarditis. LFTs normal. Chest pain could also secondary to stress or uncontrolled BP. Cardiology was consulted for possible stress test given positive family history and risk factors. I personally reviewed the record. Patient is interviewed and examined at bedside. Patient's care is coordinated with Taina Carr PA-C. Please refer to the documentation above for details of patient's presentation and for discussion of other issues. Resuscitation Status VTE Prophylaxis Will order VTE Prophylaxis: Yes <Electronically signed by Taina Carr P.A.-C.> <Electronically signed by Rajat Sabillon MD> Signed: 10/25/172155 Signed: 10/25/172226 Physical Exam (per Admitting): General Appearance: WD/WN, no apparent distress, + obese Head: normocephalic, atraumatic Eyes: normal inspection, PERRL, sclerae normal ENT: normal ENT inspection, hearing grossly normal, pharynx normal Neck: supple, thyroid normal, trachea midline Respiratory/Chest: chest non-tender, lungs clear, normal breath sounds, no respiratory distress, no accessory muscle use Cardiovascular: regular rate, rhythm, normal peripheral pulses Abdomen/GI: non tender, soft, no organomegaly Extremities/Musculoskelatal: normal inspection, no calf tenderness, no pedal edema Neurologic/Psych: supervisor calibration II-XII nml as tested, no motor/sensory deficits, alert , normal mood/affect, oriented x 3 Skin: normal color, warm/dry Hospital Course Patient is a 47-year-old female with a PMH of HTN, HLD and GERD who presents with intermittent chest pressure 5 days. Atypical chest pain/angina equivalent -H/o atypical chest pain in 2016. Dobutamine stress test negative for inducible ischemia -R/o ACS; risk factors include HTN, HLD, + family history of heart disease -Initial and serial troponins were negative and without any significant EKG abnormality -CXR without acute abnormality -Doubt any PE as d-dimer is negative -Lipid panel-high cholesterol of 288 -Consult cardiology-appreciate input -ECHO:: Left ventricular systolic function is normal. * Ejection Fraction = 60-65%. * There is a focal area of hypokinesis involving the mid anterior septum visualized with administration of ultrasonic contrast. * Otherwise normal wall motion. * There is mild concentric left ventricular hypertrophy. * Diastolic dysfunction, Grade II (pseudonormalization pattern). * No significant valvular pathology. -Cardiac cath today;;MILD NON-OBSTRUCTIVE CORONARIES Discussed with the process development manager Discharge home today HTN -BP initially 161/95 -Decreased to 130/85 with sublingual ntg -Continue home valsartan, hctz -Blood pressure seems to be controlled HLD -Currently not on medication -Fasting lipid panel pending-has high cholesterol -We will put her on Lipitor Headache -- resolved -Endorses headache with elevated BP a few days ago -No longer experiencing pain -No focal neuro deficits on exam -Consider CT head if pain recurs, new symptoms H/o cholecystectomy, post-op bile leak -No current abdominal pain -LFTs pending H/o GERD -Zantac PRN H/o Ankylosing spondylitis -Remote history -Denies any current symptoms Morbid obesity Advised to reduce weight DVT Ppx: SCDs Code status: FULL PCP: Leydi Dispo: Observation telemetry. Plan to return home once medically stable. Discharge after cardiac cath if negative and no intervention is undertaken Total time spent on discharge = 35 minutes This includes examination of the patient, discharge planning, medication reconciliation, and communication with other providers. Discharge Instructions Date of Service Oct 26, 2017. 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 Discharge Goals Goal(s): Prevent Disease Progression Activity Recommendations Activity Limitations: per Instructions/Follow-up section . Instructions / Follow-Up Instructions / Follow-Up Dr Holley on 11/03/17 at 10:45.Please make an appointment with Cardiology in 1 month. Current Hospital Diet Patient's current hospital diet: AHA Diet (Heart Healthy) Discharge Diet Recommended Diet: AHA Diet (Heart Healthy) Pending Studies Studies pending at discharge: no Laboratory Results Hemoglobin A1c Test 10/26/17 07:22 Range/Units Estimated Average Glucose 126 mg/dl Hemoglobin A1c 6.0 H 4.5-5.6 % Lipid Panel Test 10/26/17 07:22 Range/Units Triglycerides Level 175 H 0-150 mg/dl Cholesterol Level 288 H 0-200 mg/dl HDL Cholesterol 39 mg/dl Cholesterol/HDL Ratio 7.4 LDL Cholesterol, Calculated 214 mg/dl Medical Emergencies . Who to Call and When: Medical Emergencies: If at any time you feel your situation is an emergency, please call 911 immediately. . Non-Emergent Contact Non-Emergency issues call your: Primary Care Provider . Past History Medical & Surgical History: (1) Precordial chest pain (2) HTN (hypertension) (3) HLD (hyperlipidemia) (4) Ankylosing spondylitis (5) Chest pain (6) S/P cholecystectomy . "Provider Documentation" section prepared by Chrissy Snow. . Police Captain Senior Recommendations Police Captain Senior Recommendations: No Strenuous activity for 5 days. No lifting more than 10 lbs for 3 days. Go back to work based on these criteria. <Electronically signed by Chrissy Snow M.D.> Signed: 10/26/17 0810 Additional Copies To Talha Holley M.D.
[2017-10-27] MEDS ORDERED: ATORVASTATIN 40 MG TAB PO SCH (09:00)
== END 2017-10-26 18:16 | disposition home or self-care (01) ==
LOC: C.EDB 18:47 → C.MED 21:12 → ENRESERV 21:25 → C.2T 10-26 14:22
PROVIDERS: ADMIT Internal Medicine; ATTEND Internal Medicine
DX: R07.89 Other chest pain (principal); I25.10 Atherosclerotic heart disease of native coronary artery without angina pectoris; Z79.899 Other long term (current) drug therapy; Z79.82 Long term (current) use of aspirin; I10 Essential (primary) hypertension; E78.5 Hyperlipidemia, unspecified; Z82.49 Family history of ischemic heart disease and other diseases of the circulatory system; Z88.2 Allergy status to sulfonamides; Z88.1 Allergy status to other antibiotic agents; Z88.5 Allergy status to narcotic agent; E66.01 Morbid (severe) obesity due to excess calories; Z68.41 Body mass index [BMI] 40.0-44.9, adult